=== PATIENT | female | born 1950 | race Caucasian/White ===

== ENCOUNTER 2018-08-22 19:58 | Emergency (ER) | payer MEDICARE, OTHER ==
[2018-08-22 22:11] LABS: ADD MAN DIFF? NO
[2018-08-22 22:15] LABS: BASOPHILS % 0.3 % (0.0-2.0); EOSINOPHILS # 0.5 10^3/ul (0.0-0.5); EOSINOPHILS % 4.2 % (0.0-7.0); HEMATOCRIT 35.9 % (37.0-47.0); HEMOGLOBIN 12.3 g/dl (12.0-16.0); LYMPHOCYTES # 2.5 10^3/ul (0.8-2.9); MEAN CORPUSCULAR HEMOGLOBIN 30.5 pg (29.0-33.0); MEAN CORPUSCULAR HGB CONC 34.3 g/dl (32.0-37.0); MEAN CORPUSCULAR VOLUME 89.1 fl (82.0-101.0); MEAN PLATELET VOLUME 10.1 fl (7.4-10.4); MONOCYTES % 8.8 % (0.0-11.0); NEUTROPHIL # 6.8 10^3/ul (1.6-7.5); NEUTROPHILS % 63.3 % (39.0-77.0); PLATELET COUNT 346 10^3/UL (140-415); RED BLOOD COUNT 4.03 10^6/ul (4.20-5.40); RED CELL DISTRIBUTION WIDTH 12.6 % (11.5-14.5)
[2018-08-22 22:15] LABS: WHITE BLOOD COUNT 10.8 10^3/ul (4.8-10.8)
[2018-08-22 22:35] LABS: ANION GAP 10 (5-13); BLOOD UREA NITROGEN 14 mg/dl (7-20); CALCIUM 9.4 mg/dl (8.4-10.2); CARBON DIOXIDE 28 mmol/L (21-31); CHLORIDE 91 mmol/L (97-110); CREATININE 0.91 mg/dl (0.44-1.00); Estimated GFR > 60 mL/min (>60); GLUCOSE 151 mg/dl (70-220); POTASSIUM 3.4 mmol/L (3.5-5.1); SODIUM 129 mmol/L (135-144)
[2018-08-22 22:46] LABS: TROPONIN-I < 0.012 ng/ml (0.000-0.120)
[2018-08-22] MEDS: NICARDipine HCL 30 MG CAPSULE PO (23:10)
[2018-08-22] MEDS: SOD CHLORIDE 0.9% 500 ML IV (23:11)
[2018-08-22] MEDS: LABETALOL HCL 20MG INJ IV (23:14)
== END 2018-08-23 00:15 | disposition home or self-care (01) ==
LOC: E/R 08-23 00:15
DX: I16.0 Hypertensive urgency (principal); E87.1 Hypo-osmolality and hyponatremia
CPT/HCPCS: 36415; 71045; 80048; 84484; 85025; 93005; 96374; 99285-25